=== PATIENT | female | born 1965 | race Asian ===

== ENCOUNTER 2018-03-11 14:04 | Emergency (ER) | payer SELFPAY ==
[~2018-03-11] VITALS: Ht 167.6 cm; Wt 65.0 kg
[2018-03-11] MEDS ORDERED: ONDANSETRON HCL 4MG/2ML INJ IV STA (14:32)
[2018-03-11] MEDS ORDERED: SODIUM CHLORIDE 0.9% 1,000 ML IV ONE (14:32)
[2018-03-11] MEDS ORDERED: MECLIZINE 25MG TABLET PO ONE (14:45)
[2018-03-11 14:58] LABS: BASOPHILS % 0.3 % (0.0-2.0); EOSINOPHILS % 0.1 % (0.0-5.0); HEMOGLOBIN. 14.5 g/dL (12.0-16.0); LYMPHOCYTES % 10.9 % (20.0-50.0); MEAN CORPUSCULAR HEMOGLOBIN 25.8 pg (28.0-32.0); MEAN CORPUSCULAR VOLUME 78.6 fL (81.0-99.0); MEAN PLATELET VOLUME 7.6 fl (7.4-10.4); MONOCYTES % 4.1 % (2.0-8.0); NEUTROPHILS % 84.6 % (40.0-76.0); PLATELET 311 x1000/uL (130-400); RED CELL DISTRIBUTION WIDTH 14.8 % (11.6-14.6)
[2018-03-11 15:02] LABS: CHLORIDE 106 mEq/L (98-107)
[2018-03-11 19:13] VITALS: BP 140/96
== END 2018-03-11 19:03 | disposition home or self-care (01) ==
LOC: ER 14:04
DX: R42 Dizziness and giddiness (principal); R51 Headache; K21.9 Gastro-esophageal reflux disease without esophagitis; Z90.710 Acquired absence of both cervix and uterus; Z98.890 Other specified postprocedural states
CPT/HCPCS: 36415; 70551; 80053; 83880; 84484; 85025; 93005; 96361; 96374; 99284; J2405; J7030; J8597